=== PATIENT | male | born 1985 | race Caucasian/White ===

== ENCOUNTER 2017-12-03 12:45 | Emergency (ER) | payer SELFPAY ==
[2017-12-03 13:27] LABS: Absolute Lymphocytes (CBC) 1.5 K/uL (0.7-4.9); Absolute Monocytes 0.7 K/uL (0.1-1.3); Absolute Neutrophil 5.4 K/uL (1.8-8.0); Basophils % 0.3 % (0-1.3); Eosinophils % 1.1 % (0-4.4); Hematocrit 42.2 % (39.6-49.0); Lymphocytes % 19.8 % (15.3-44.8); MCH 28.2 pg (27.0-35.0); MCV 83.2 fL (80-100); MPV 8.7 fL (7.6-11.3); Monocytes % 9.3 % (3.3-12.3); RBC Red Blood Cell Count 5.07 M/uL (4.33-5.43)
[2017-12-03 13:36] LABS: Potassium 3.6 mmol/L (3.5-5.1)
--- NOTE | 2017-12-03 13:36 | RAD REPORT ---
EXAM DESCRIPTION: RAD - Chest Single View - 12/03/2017 1:20 pm CLINICAL HISTORY: TRAUMA Chest pain. COMPARISON: No comparisons FINDINGS: Portable technique limits examination quality. The lungs are grossly clear. The heart is normal in size. No displaced fractures. IMPRESSION: No acute intrathoracic process suspected.
--- NOTE | 2017-12-03 13:36 | RAD REPORT ---
EXAM DESCRIPTION: CT - Head C Spine Cap Lupe Saldivar - 12/03/2017 1:22 pm CLINICAL HISTORY: Trauma, head and neck injury. Chest, abdomen and pelvis pain. PAIN COMPARISON: No comparisons TECHNIQUE: CT head without contrast. CT cervical spine without contrast with coronal and sagittal reformatted images. CT chest, abdomen and pelvis with IV contrast (approximately 100 mL nonionic IV contrast) with polo l and sagittal reformatted images of the spine. All CT scans are performed using dose optimization technique as appropriate and may include automated exposure control or mA/KV adjustment according to patient size. FINDINGS: CT HEAD WITHOUT CONTRAST: No intracranial hemorrhage, hydrocephalus or extra-axial fluid collection. No areas of brain edema o r midline shift. The paranasal sinuses and mastoids are clear. The calvarium is intact. CT CERVICAL SPINE WITHOUT CONTRAST: No fracture or subluxation. Small endplate osteophytes are present at C3-4. The prevertebral soft tis sues are normal in thickness. CT CHEST, ABDOMEN, PELVIS WITH CONTRAST: The lungs are clear.No pneumothorax or pericardial/pleural fluid. No evidence of intra-abdominal visceral injury, free fluid or free air. Mildly displaced fracture of the superior and inferior pubic ramus on the right. Nondisplaced fractur e of the right sacral ala also suspected extending to involve the SI joint. IMPRESSION: Pelvic and sacral fractures on the right as detailed. Findings were discussed with Collin Coleman in the ER 1:30 p.m. 12/03/2017 by telephone.
--- NOTE | 2017-12-03 13:37 | RAD REPORT ---
EXAM DESCRIPTION: RAD - Pelvis - 12/03/2017 1:20 pm CLINICAL HISTORY: TRAUMA COMPARISON: No comparisons FINDINGS: Fractures of the right superior and inferior pubic rami are noted. No hip fracture or disl ocation seen.
--- NOTE | 2017-12-03 14:34 | EDPHYS ---
Physician Documentation [facility] Name: Florian Lopes Age: 32 yrs Sex: Male : 1985 Arrival Date: 12/03/2017 Time: 12:53 Bed 26 Private MD: ED Physician Vidal Keyes HPI: 12/03 14:19 This 32 yrs old Male presents to ER via EMS with complaints of Fall Injury. jr8 14:19 Details of fall: The patient fell from a height, off a roof. Onset: The jr8 symptoms/episode began/occurred acutely, today. Associated injuries: The patient sustained injury to the head, pelvis. Severity of symptoms: At their worst the symptoms were moderate, in the emergency department the symptoms have improved. The patient has not experienced similar symptoms in the past. The patient has not recently seen a physician. Was at work on roof and fell approximately 25 ft landing on car. Stated that was dazed for about 30 seconds. Currently complains of pain to right right hip and head . Historical: - Allergies: 13:39 No Known Allergies; tw2 - Home Meds: 13:39 None [Active]; tw2 - PMHx: 13:39 None; tw2 - PSHx: 13:39 None; tw2 - Immunization history:: Adult Immunizations up to date. - Social history:: Smoking status: Patient uses tobacco products, smokes one pack cigarettes per day. - Immunization history: Last tetanus immunization: unknown. - Ebola Screening: : Patient denies travel to an Ebola-affected area in the 21 days before illness onset. ROS: 14:19 Eyes: Negative for injury, pain, redness, and discharge, ENT: Negative for injury, jr8 pain, and discharge, Neck: Negative for injury, pain, and swelling, Cardiovascular: Negative for chest pain, palpitations, and edema, Respiratory: Negative for shortness of breath, cough, wheezing, and pleuritic chest pain, Abdomen/GI: Negative for abdominal pain, nausea, vomiting, diarrhea, and constipation, Back: Negative for injury and pain, Skin: Negative for injury, rash, and discoloration. 14:19 MS/extremity: Positive for pain, tenderness, of the pelvis. 14:19 Neuro: Positive for headache, loss of consciousness. Exam: 14:19 Eyes: Pupils equal round and reactive to light, extra-ocular motions intact. Lids and jr8 lashes normal. Conjunctiva and sclera are non-icteric and not injected. Cornea within normal limits. Periorbital areas with no swelling, redness, or edema. ENT: Nares patent. No nasal discharge, no septal abnormalities noted. Tympanic membranes are normal and external auditory canals are clear. Oropharynx with no redness, swelling, or masses, exudates, or evidence of obstruction, uvula midline. Mucous membranes moist. Neck: Trachea midline, no thyromegaly or masses palpated, and no cervical lymphadenopathy. Supple, full range of motion without nuchal rigidity, or vertebral point tenderness. No Meningismus. Cardiovascular: Regular rate and rhythm with a normal S1 and S2. No gallops, murmurs, or rubs. Normal PMI, no JVD. No pulse deficits. Respiratory: Lungs have equal breath sounds bilaterally, clear to auscultation and percussion. No rales, rhonchi or wheezes noted. No increased work of breathing, no retractions or nasal flaring. Abdomen/GI: Soft, non-tender, with normal bowel sounds. No distension or tympany. No guarding or rebound. No evidence of tenderness throughout. Back: No spinal tenderness. No costovertebral tenderness. Full range of motion. Neuro: Awake and alert, GCS 15, oriented to person, place, time, and situation. Cranial nerves II-XII grossly intact. Motor strength 5/5 in all extremities. Sensory grossly intact. Cerebellar exam normal. Normal gait. 14:19 Head/face: Noted is abrasion(s), that are mild, of the forehead, chin and left mandaen. 14:19 Musculoskeletal/extremity: Extremities: grossly normal except: noted in the pelvis: pain, tenderness, ROM: limited passive range of motion, in the right leg, limited active range of motion due to pain, in the right leg, limited passive range of motion due to pain, in the right leg, Circulation is intact in all extremities. Sensation intact. Weight bearing: is unable to bear weight. 14:19 Skin: abrasions and superficial lacerations to hands, arms, and legs . Vital Signs: 12:55 BP 112 / 83; Pulse 61; Resp 17; Temp 97.7(O); Pulse Ox 100% on R/A; Pain 8/10; tw2 14:11 BP 118 / 74; Pulse 79; Resp 18; Pulse Ox 99% ; tl3 15:03 BP 107 / 91; Pulse 79; Resp 17; Pulse Ox 100% on R/A; tw2 12:55 8/10 if right leg moved tw2 Patten Coma Score: 12:53 Eye Response: spontaneous(4). Verbal Response: oriented(5). Motor Response: obeys tw2 commands(6). Total: 15. 13:30 Eye Response: spontaneous(4). Verbal Response: oriented(5). Motor Response: obeys tw2 commands(6). Total: 15. Trauma Score (Adult): 12:53 Eye Response: spontaneous(1); Verbal Response: oriented(1); Motor Response: obeys tw2 commands(2); Systolic BP: > 89 mm Hg(4); Respiratory Rate: 10 to 29 per min(4); Patten Score: 15; Trauma Score: 12 13:30 Eye Response: spontaneous(1); Verbal Response: oriented(1); Motor Response: obeys tw2 commands(2); Systolic BP: > 89 mm Hg(4); Respiratory Rate: 10 to 29 per min(4); Dami Score: 15; Trauma Score: 12 MDM: 12:57 Medical screening is not applicable. [facility] 14:32 Data reviewed: vital signs, nurses notes, lab test result(s), radiologic studies, CT jr scan. Data interpreted: Pulse oximetry: on room air is 99 %. Interpretation: normal. Counseling: I had a detailed discussion with the patient and/or guardian regarding: the historical points, exam findings, and any diagnostic results supporting the discharge/admit diagnosis, lab results, radiology results, the need to transfer to another facility, for higher level of care, [facility] does not immediately have the required specialist. ED course: Consulted Dr. Christine at [place]. Accepted patient . 12/03 13:00 Order name: Basic Metabolic Panel; Complete Time: 13:42 12/03 13:00 Order name: CBC with Diff; Complete Time: 13:32 12/03 13:00 Order name: XRAY Pelvis; Complete Time: 13:42 12/03 13:00 Order name: Creatinine for Radiology; Complete Time: 13:42 12/03 13:00 Order name: Type And Screen; Complete Time: 13:54 jr 12/03 14:00 Order name: ABO/RH no charge; Complete Time: 14:04 EDWV 12/03 13:00 Order name: XRAY Chest (1 view); Complete Time: 13:42 jr8 12/03 13:00 Order name: CT Traumagram (Head C Spine CAP W Con); Complete Time: 13:42 jr8 12/03 13:00 Order name: Labs collected and sent; Complete Time: 13:09 jr8 Administered Medications: No medications were administered Disposition: 17:30 Co-signature as Attending Physician, Vidal Keyes MD I agree with the assessment and kdr plan of care. Disposition: 12/03/17 14:33 Transfer ordered to [facility]. Diagnosis is Multiple fractures of pelvis with stable disruption of pelvic ring. - Reason for transfer: Higher level of care. - Accepting physician is Dr. Christine. - Condition is Stable. - Problem is new. - Symptoms are unchanged. Signatures: Dispatcher [employer] [facility] Vidal Keyes MD MD kdr Vern, Katherine, ROOFING MACHINE OPERATOR ROOFING MACHINE OPERATOR Collin Jordan, OLU PA jr8 Rose Morales, RN RN tw2 Corrections: (The following items were deleted from the chart) 15:30 14:33 12/03/2017 14:33 Transfer ordered to [facility]. tw2 Diagnosis is Multiple fractures of pelvis with stable disruption of pelvic ring. Reason for transfer: Higher level of care. Accepting physician is Dr. Christine. Condition is Stable. Problem is new. Symptoms are unchanged. jr8
--- NOTE | 2017-12-03 14:34 | ER ---
Nurse's Notes [facility] Name: Florian Lopes Age: 32 yrs Sex: Male : 1985 Arrival Date: 12/03/2017 Time: 12:53 Bed 26 Private MD: Diagnosis: Multiple fractures of pelvis with stable disruption of pelvic ring Presentation: 12/03 12:40 Mechanism of Injury: Fall from 1st story approximately 25 feet. Trauma event details: tw2 Injury occurred in the [facility]. 12:53 Presenting complaint: EMS states: pt fell from roof of [employer], approx 25 feet, tw2 landed on a car in the drive thru, he tried to catch himself while falling and it stretched his right leg, c/o right hip and groin pain, cms intact, no loc, minor lacerations to left hand and abrasions on forehead. Transition of care: patient was not received from another setting of care. Onset of symptoms was December 03, 2017. Risk Assessment: Do you want to hurt yourself or someone else? Patient reports no desire to harm self or others. Initial Sepsis Screen: Does the patient meet any 2 criteria? No. Patient's initial sepsis screen is negative. Does the patient have a suspected source of infection? No. Patient's initial sepsis screen is negative. Care prior to arrival: Cervical collar in place. 12:53 Method Of Arrival: EMS: [facility] tw 12:53 Acuity: RAQUEL 2 aa5 Triage Assessment: 15:30 General: Behavior is calm. Trauma Activation: Alert Physician: ED Physician; Name: ; Notified At: ; Arrived At: Physician: General Surgeon; Name: ; Notified At: ; Arrived At: Physician: Radiology; Name: ; Notified At: ; Arrived At: Physician: Respiratory; Name: ; Notified At: ; Arrived At: Physician: Lab; Name: ; Notified At: ; Arrived At: Historical: - Allergies: 13:39 No Known Allergies; tw - Home Meds: 13:39 None [Active]; tw2 - PMHx: 13:39 None; tw2 - PSHx: 13:39 None; tw2 - Immunization history:: Adult Immunizations up to date. - Social history:: Smoking status: Patient uses tobacco products, smokes one pack cigarettes per day. - Immunization history: Last tetanus immunization: unknown. - Ebola Screening: : Patient denies travel to an Ebola-affected area in the 21 days before illness onset. Screenin:37 Abuse screen: Denies threats or abuse. Nutritional screening: No deficits noted. tw2 Tuberculosis screening: No symptoms or risk factors identified. Fall Risk None identified. Primary Survey: 12:53 A: Airway: patent. Breathing/Chest: Respiratory pattern: regular, Respiratory effort: tw2 spontaneous, unlabored, Breath sounds: clear, bilaterally. Chest inspection: symmetrical rise and fall of the chest. Circulation: Heart tones present. Skin color: pink, Skin temperature: warm, dry. Disability Alert. 13:30 Reassessment Airway Airway Patent Breathing/Chest Respiratory pattern Regular tw2 Respiratory effort Spontaneous Unlabored Breath sounds Clear Chest inspection Symmetrical Circulation Heart tones Present Temperature Warm Dry Disability Alert. Secondary Survey: 13:30 HEENT: Head Other abrasions noted to forehead. Gastrointestinal: Abdomen is soft, flat, tw2 Bowel sounds present in all quadrants. : No signs and/or symptoms were reported regarding the genitourinary system. Musculoskeletal: Circulation, motion, and sensation intact. Reports pain in pelvis. Assessment: 12:53 General: Appears in no apparent distress. Pain: Complains of pain in right upper thigh tw2 and right hip. Neuro: Level of Consciousness is awake, alert, obeys commands, Oriented to person, place, time, situation. Cardiovascular: Denies chest pain, Heart tones S1 S2 Patient's skin is warm and dry. Respiratory: Airway is patent Breath sounds are clear bilaterally. GI: No signs and/or symptoms were reported involving the gastrointestinal system. Abdomen is flat, Bowel sounds present X 4 quads. : No signs and/or symptoms were reported regarding the genitourinary system. EENT: No signs and/or symptoms were reported regarding the EENT system. Derm: Skin is intact, is healthy with good turgor, Skin temperature is warm. Musculoskeletal: Circulation, motion, and sensation intact. Range of motion:. 13:40 Reassessment: Patient appears in no apparent distress at this time. No changes from tw2 previously documented assessment. Patient and/or family updated on plan of care and expected duration. Pain level reassessed. Patient is alert, oriented x 3, equal unlabored respirations, skin warm/dry/pink. 14:16 Reassessment: Patient appears in no apparent distress at this time. No changes from tw2 previously documented assessment. Patient and/or family updated on plan of care and expected duration. Pain level reassessed. Patient is alert, oriented x 3, equal unlabored respirations, skin warm/dry/pink. 15:03 Reassessment: Patient appears in no apparent distress at this time. No changes from tw2 previously documented assessment. Patient and/or family updated on plan of care and expected duration. Pain level reassessed. Patient is alert, oriented x 3, equal unlabored respirations, skin warm/dry/pink. 15:26 Reassessment: Patient appears in no apparent distress at this time. No changes from tw2 previously documented assessment. Patient and/or family updated on plan of care and expected duration. Pain level reassessed. Patient is alert, oriented x 3, equal unlabored respirations, skin warm/dry/pink. Vital Signs: 12:55 BP 112 / 83; Pulse 61; Resp 17; Temp 97.7(O); Pulse Ox 100% on R/A; Pain 8/10; tw2 14:11 BP 118 / 74; Pulse 79; Resp 18; Pulse Ox 99% ; tl3 15:03 BP 107 / 91; Pulse 79; Resp 17; Pulse Ox 100% on R/A; tw2 12:55 8/10 if right leg moved tw2 Dami Coma Score: 12:53 Eye Response: spontaneous(4). Verbal Response: oriented(5). Motor Response: obeys tw2 commands(6). Total: 15. 13:30 Eye Response: spontaneous(4). Verbal Response: oriented(5). Motor Response: obeys tw2 commands(6). Total: 15. Trauma Score (Adult): 12:53 Eye Response: spontaneous(1); Verbal Response: oriented(1); Motor Response: obeys tw2 commands(2); Systolic BP: > 89 mm Hg(4); Respiratory Rate: 10 to 29 per min(4); Dami Score: 15; Trauma Score: 12 13:30 Eye Response: spontaneous(1); Verbal Response: oriented(1); Motor Response: obeys tw2 commands(2); Systolic BP: > 89 mm Hg(4); Respiratory Rate: 10 to 29 per min(4); Julian Score: 15; Trauma Score: 12 ED Course: 12:53 Patient arrived in ED. tw2 12:53 Placed in gown. Side rails up X2. Pulse ox on. NIBP on. Warm blanket given. tw2 12:53 Patient maintains SpO2 saturation greater than 95% on room air. Thermoregulation: warm tw2 blanket given to patient. 12:55 Triage completed. tw2 12:56 Arm band placed on. tw2 12:57 Nellie Forrest FNP is PHCP. kav 12:57 Vidal Keyes MD is Attending Physician. kav 12:59 PHCP role handed off by Nellie Forrest FNP jr8 12:59 Collin Coleman PA is PHCP. jr8 13:09 Inserted saline lock: 20 gauge in left antecubital area, using aseptic technique. Blood mt collected. 13:[address] via stretcher. em2 13:18 X-ray completed. Portable x-ray completed in exam room. Patient tolerated procedure la2 well. 13:19 CT Traumagram (Head C Spine CAP W Con) In Process Unspecified. EDMS 13:21 XRAY Pelvis In Process Unspecified. EDMS 13:21 XRAY Chest (1 view) In Process Unspecified. EDMS 13:22 CT completed. Patient tolerated procedure well. Patient moved back from CT. em2 13:34 Rose Morales, RN is Primary Nurse. tw2 14:09 Removal of Cervical Collar. tl3 14:10 Collin at bedside discussing findings and POC with pt and family, removed C-Collar. tl3 14:11 initiated transfer with Fiona Hobson at [facility]. eb 14:[address] Christine with Collin RAINES for patient transfer consulation. eb 14:23 administrative approval given by Fiona Hobson lamination assemblerEye Physician, Pt was eb accepted by Dr. Rea Christine. Pt to go to the ER. Report to be called to [id number]. 14:29 pt cleaned of dried blood to scalp and face. tl3 15:29 No provider procedures requiring assistance completed. Patient transferred, IV remains tw2 in place. Administered Medications: No medications were administered Intake: 12:53 PO: 0ml; Total: 0ml. tw2 Outcome: 14:33 ER care complete, transfer ordered by . jr8 15:27 Transferred by ground EMS to [facility]. tw2 15:27 Condition: stable 15:27 Patient's length of stay in the Emergency Department was greater than 2 hours. d/t transfer for higher level of carePatient's length of stay extended due to 15:30 Patient left the ED. tw2 Signatures: Dispatcher [employer] EDMS Nellie Forrest, CURB SETTER CURB SETTER Arianna Lebron RN RN aa5 Collin Coleman PA PA jr8 Kishore Riggs em2 Rose Morales RN RN tw2 Joanne Ku mt, Leslie va2 Nora Curiel RN RN tl3 Bee Carlton Corrections: (The following items were deleted from the chart) 14:38 12:53 Acuity: RAQUEL 3 tw2 aa5
== END 2017-12-03 15:30 | disposition short-term general hospital (02) ==
LOC: ER 12:45
DX: S32.810A Multiple fractures of pelvis with stable disruption of pelvic ring, initial encounter for closed fracture (principal); W13.2XXA Fall from, out of or through roof, initial encounter; Y93.89 Activity, other specified; Y92.9 Unspecified place or not applicable; F17.210 Nicotine dependence, cigarettes, uncomplicated
CPT/HCPCS: 36415; 70450; 71045; 71260; 72125; 72170; 74177; 80048; 85025; 86850; 86900; 86901; 99285; Q9967